=== PATIENT | male | born 1950 | race Caucasian/White ===

== ENCOUNTER 2018-08-26 14:16 | Emergency (ER) | payer MEDICARE, BC ==
[~2018-08-26] VITALS: Ht 185.4 cm; Wt 70.0 kg
[2018-08-26 15:28] LABS: ALANINE AMINOTRANSFERASE 22 U/L (12-78); ALBUMIN 3.6 g/dL (3.4-5.0); ANION GAP 6 mmol/L (5-15); CALCIUM 8.5 mg/dL (8.5-10.1); CHLORIDE 101 mmol/L (98-107); CREATININE 0.88 mg/dL (0.7-1.3)
[2018-08-26 15:30] LABS: ALKALINE PHOSPHATASE 94 U/L (45-117); TOTAL PROTEIN 6.6 g/dL (6.4-8.2)
[2018-08-26 16:09] LABS: MD YES; MEAN CORPUSCULAR HEMOGLOBIN 17.9 pg (27.5-34.5); MEAN CORPUSCULAR VOLUME 60.8 fL (81-97); PLATELET COUNT 248 x10^3/uL (130-400); RED CELL DISTRIBUTION WIDTH 19.9 % (9.4-14.8)
[2018-08-26 16:12] LABS: MEAN CORPUSCULAR HGB CONC 29.5 g/dL (33.2-36.2); RED BLOOD COUNT 10.32 x10^6/uL (4.38-5.82)
[2018-08-26 16:16] LABS: BASOS#(MANUAL) 0.28 x10^3/uL (0-0.1); BASOS% (MANUAL) 1 % (0-1); EOS#(MANUAL) 1.12 x10^3/uL (0.0-0.4); EOS% (MANUAL) 4 % (1-7)
[2018-08-26 16:18] LABS: LYMPHS% (MANUAL) 5 % (22-44); MONOS#(MANUAL) 0.56 x10^3/uL (0.3-2.7); MONOS% (MANUAL) 2 % (2-9)
--- NOTE | 2018-08-26 16:20 | NUR ---
Break RN: Pt assisted in using urinal, blanket provided. All results back, ready for ERP recheck.
[2018-08-26 16:27] LABS: BAND#(MANUAL) 0.56 x10^3/uL; BANDS%(MANUAL) 2 % (0-7); SEG#(MANUAL) 24.08 x10^3/uL (1.8-6.8); SEGS% (MANUAL) 86 % (42-75)
[2018-08-26 16:28] LABS: <PLATELET ESTIMATE> ADEQUATE; ANISOCYTOSIS 3+; HYPOCHROMIA 2+; MICROCYTOSIS 3+; OVALOCYTES 1+; POLYCHROMASIA 1+
[2018-08-26 16:29] LABS: LARGE PLATELETS 1+
[2018-08-26 16:35] LABS: SMUDGE CELLS 1+
[2018-08-26 16:53] LABS: MICROSCOPIC AUTO
[2018-08-26 16:56] LABS: CULTURE INDICATED? YES
[2018-08-26 17:12] VITALS: BP 103/68
--- NOTE | 2018-08-26 17:16 | NUR ---
REMAINS RESTING NADN WAITING RESULTS
--- NOTE | 2018-08-26 17:35 | NUR ---
[facility] UNABLE TO TRANSPORT [facility]IA [facility] ([facility]), [facility] TO TRANSPORT ~1830 (PER ELIZABETH). Addendum: 08/26/18 at 1758 by TIFFANIE [facility]ORT PT ([facility]), [facility] TO [facility]SPORT ~1830 (PER ELIZABETH).
== END 2018-08-26 18:44 | disposition home or self-care (01) ==
LOC: ED 14:56
DX: R07.81 Pleurodynia (principal); D72.829 Elevated white blood cell count, unspecified; Z86.73 Personal history of transient ischemic attack (TIA), and cerebral infarction without residual deficits
CPT/HCPCS: 36415; 71045; 76700; 80053; 81001; 85025; 87086; 93005; 99284

== ENCOUNTER 2018-09-30 18:40 | Inpatient (IN) | payer MEDICARE, BC ==
[~2018-09-30] VITALS: Ht 185.4 cm; Wt 67.3 kg
--- NOTE | 2018-09-30 19:00 | NUR ---
pt biba, report received from ems. per ems pt had cp x 2 hrs earlier today which has since resolved. pt now has c/o lower midline abd pain and notes no bm x 4 days. pt is a&o, resps even and unlabored. pt brought from assisted living ([facility]) in [place], pt has hx cva with left sided flaccidity. pt placed on all monitors, ekg taken on arrival by edt. call light in reach.
[2018-09-30 19:53] LABS: MEAN CORPUSCULAR VOLUME 61.4 fL (81-97); MEAN PLATELET VOLUME 8.1 fL (7.4-10.4); PLATELET COUNT 258 x10^3/uL (130-400)
--- NOTE | 2018-09-30 19:55 | NUR ---
pt to xray
[2018-09-30 20:02] LABS: ALANINE AMINOTRANSFERASE 24 U/L (12-78); ALBUMIN 3.4 g/dL (3.4-5.0); ANION GAP 6 mmol/L (5-15); CHLORIDE 101 mmol/L (98-107); CREATININE 0.83 mg/dL (0.7-1.3)
[2018-09-30 20:07] LABS: ALKALINE PHOSPHATASE 93 U/L (45-117); BILIRUBIN,TOTAL 0.9 mg/dL (0.2-1.0); TOTAL PROTEIN 6.6 g/dL (6.4-8.2); TROPONIN I < 0.015 ng/mL (0.000-0.045)
[2018-09-30 20:34] LABS: RED BLOOD COUNT 10.57 x10^6/uL (4.38-5.82)
[2018-09-30 20:35] LABS: MD YES; MEAN CORPUSCULAR HEMOGLOBIN 17.6 pg (27.5-34.5); MEAN CORPUSCULAR HGB CONC 28.6 g/dL (33.2-36.2)
[2018-09-30 20:37] LABS: BAND#(MANUAL) 0.93 x10^3/uL; BANDS%(MANUAL) 3 % (0-7); BASOS#(MANUAL) 0.31 x10^3/uL (0-0.1); BASOS% (MANUAL) 1 % (0-1); EOS#(MANUAL) 0.62 x10^3/uL (0.0-0.4); EOS% (MANUAL) 2 % (1-7); LYMPH#(MANUAL) 0.93 x10^3/uL (1-3.4); LYMPHS% (MANUAL) 3 % (22-44); MONOS#(MANUAL) 0.62 x10^3/uL (0.3-2.7); MONOS% (MANUAL) 2 % (2-9); SEGS% (MANUAL) 89 % (42-75)
[2018-09-30 20:38] LABS: HYPOCHROMIA 2+; MICROCYTOSIS 3+
[2018-09-30 20:39] LABS: ANISOCYTOSIS 2+
[2018-09-30 20:40] LABS: <PLATELET ESTIMATE> ADEQUATE; <PLT MORPHOLOGY> NORMAL PLT MORPH
--- NOTE | 2018-09-30 20:41 | NUR ---
lab at bedside for redraw
--- NOTE | 2018-09-30 20:46 | NUR ---
pt resting on gurney, pt a&o, resps even and unlabored. pt denies any pain at this time. no n/v. pt remains in nsr on property assessment monitor. pt given urinal at request to void. awaiting lab/xray results and dispo at this time. call light in reach. pt denies any other needs.
--- NOTE | 2018-09-30 20:54 | NUR ---
SAIRAME Cordell notified WBC count 30. no source of infection found at this time.
[2018-09-30 20:58] LABS: INTERNATIONAL NORMALIZED RATIO 1.47 (0.93-1.1); PROTHROMBIN TIME 15.4 Seconds (9.6-11.5)
--- NOTE | 2018-09-30 21:11 | NUR ---
pt still attempting to void via urinal without success. pt states "noise distracts me." pt educated regarding need for straight cath ua to evaluate source of infection. pt verbalizes understanding but refuses straight cath despite RN edcuation. LEO Landa and MD Wu notified.
--- NOTE | 2018-09-30 21:14 | NUR ---
[facility] notified pt's most recent bp 100/46.
[2018-09-30] MEDS ORDERED: SODIUM CHLORIDE 0.9% 1,000ML IVBOLUS ONE (21:30)
--- NOTE | 2018-09-30 21:45 | NUR ---
PT STILL UNABLE TO VOID WITH URINAL. PT EDUCATED PROFUSELY BY THIS RN REGARDING IMPORTANCE OF NEED TO OBTAIN URINE WITH STRAIGHT CATH. PT DEMONSTRATES UNDERSTANDING BUT CONTINUES TO REFUSE STRAIGHT CATH. LEO GRUBBS AND [facility] NOTIFIED PT CONTINUES TO REFUSE STRAIGHT CATH AND IS UNABLE TO PROVIDE URINE AT THIS TIME. PT IS A&O, RESPS EVEN AND UNLABORED. PER [facility]SU[facility], PT DOES NOT HAVE PNA ON IMAGING TAKEN TODAY. OK'D PT TO BE TRANSPORTED TO [facility] WITHOUT URINE SAMPLE.
--- NOTE | 2018-09-30 21:50 | NUR ---
REPORT GIVEN TO FINESSE BRIAN.
--- NOTE | 2018-09-30 21:56 | NUR ---
FRANCK BANKS AT BEDSIDE TO ADMIT PT
[2018-09-30] MEDS ORDERED: atorvastatin PO (22:17)
[2018-09-30] MEDS ORDERED: RISP0.5T3 PO (22:17)
[2018-09-30] MEDS ORDERED: POLY500P18 PO (22:17)
[2018-09-30] MEDS ORDERED: ROPI1TAB2 PO (22:17)
[2018-09-30] MEDS ORDERED: PETR99OI2 TP (22:17)
[2018-09-30] MEDS ORDERED: lisinopril PO (22:17)
[2018-09-30] MEDS ORDERED: CLOP75TA PO (22:17)
[2018-09-30] MEDS ORDERED: HYDR28.423 TP (22:17)
[2018-09-30] MEDS ORDERED: LEVE10007 PO (22:17)
[2018-09-30] MEDS ORDERED: ONDA4TAB13 SL (22:17)
[2018-09-30] MEDS ORDERED: calmoseptine oint TP (22:17)
[2018-09-30] MEDS ORDERED: TRAM50TA2 PO (22:17)
[2018-09-30] MEDS ORDERED: phenytoin PO (22:17)
[2018-09-30] MEDS ORDERED: ACET325T14 PO (22:17)
[2018-09-30] MEDS ORDERED: CARV3.1212 PO (22:17)
[2018-09-30] MEDS ORDERED: DULO20CA45 PO (22:17)
[2018-09-30] MEDS ORDERED: SODIUM CHLORIDE 0.9% 1,000 ML IV SCH (22:26)
--- NOTE | 2018-09-30 22:29 | NUR ---
late entry for 2228 d/t patient care: pt was able to provide urine via urinal. verbal order received from EDMD Bryce to send urine clean catch for ua. urine sent to lab. 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 pt a&o, resps even and unlabored. FRANCK Santiago notified pt is meeting criteria for sepsis but does not have a source yet, however urine is pending. vs and trend reveiwed with FRANCK Santiago. FRANCK paez'd pt to be transported to [facility] at this time. receiving RN Blanca called to update, receiving RN aware to await UA results and call hospitalist with results. pt in no acute distress at time of transport.
[2018-09-30] MEDS ORDERED: LIDODERM 5% PATCH TD PRN (22:30)
[2018-09-30] MEDS ORDERED: ONDANSETRON ODT 4 MG PO PRN (22:30)
[2018-09-30] MEDS ORDERED: DOCUSATE 100 MG CAPSULE PO PRN (22:30)
[2018-09-30] MEDS ORDERED: ENALAPRILAT 1.25 MG/ML, 2ML IVPush PRN (22:30)
[2018-09-30] MEDS ORDERED: GABAPENTIN 300 MG CAPSULE PO PRN (22:30)
[2018-09-30] MEDS: ENOXAPARIN 40 MG/0.4 ML SQ SCH (22:30)
[2018-09-30] MEDS ORDERED: ACETAMINOPHEN 325 MG TABLET PO PRN (22:30)
[2018-09-30 22:46] LABS: CULTURE INDICATED? YES; MICROSCOPIC INDICATED
[2018-09-30 23:55] VITALS: BP 97/59
[2018-10-01] MEDS: RISPERIDONE 0.5 MG TABLET PO SCH ×2 (00:30→20:45)
[2018-10-01] MEDS ORDERED: POLYETHYLENE GLYCOL 17 GM PACKET PO PRN (00:30)
[2018-10-01] MEDS ORDERED: ONDANSETRON ODT 4 MG SL PRN (00:30)
[2018-10-01] MEDS: ROPINIROLE 1MG TABLET PO SCH ×2 (00:30→20:45)
[2018-10-01] MEDS ORDERED: HYDROCORTISONE CRM 1%, 30GM TP PRN (00:30)
[2018-10-01] MEDS: ATORVASTATIN 40 MG TABLET PO SCH ×2 (00:30→20:44)
[2018-10-01] MEDS: CALMOSEPTINE TP SCH ×6 (00:30→20:44)
[2018-10-01] MEDS ORDERED: AQUAPHOR NATURAL HEALING OINT 50GM TP PRN (00:30)
[2018-10-01] MEDS ORDERED: ACETAMINOPHEN 325 MG TABLET PO PRN ×2 (00:30→08:00)
[2018-10-01] MEDS: PHENYTOIN 100 MG CAPSULE PO SCH ×4 (00:30→20:45)
[2018-10-01 01:54] VITALS: BP 102/60
[2018-10-01 06:43] VITALS: BP 99/57
[2018-10-01 06:50] LABS: MEAN CORPUSCULAR HEMOGLOBIN 17.8 pg (27.5-34.5); MEAN CORPUSCULAR VOLUME 60.7 fL (81-97); MEAN PLATELET VOLUME 7.9 fL (7.4-10.4); PLATELET COUNT 241 x10^3/uL (130-400); RED CELL DISTRIBUTION WIDTH 20.9 % (9.4-14.8)
[2018-10-01 06:56] LABS: ANION GAP 5 mmol/L (5-15); CALCIUM 7.5 mg/dL (8.5-10.1); CHLORIDE 107 mmol/L (98-107); CREATININE 0.59 mg/dL (0.7-1.3)
[2018-10-01 06:59] LABS: TROPONIN I < 0.015 ng/mL (0.000-0.045)
[2018-10-01 07:19] LABS: MD YES; MEAN CORPUSCULAR HGB CONC 29.3 g/dL (33.2-36.2); RED BLOOD COUNT 10.11 x10^6/uL (4.38-5.82)
[2018-10-01 07:25] LABS: EOS% (MANUAL) 4 % (1-7); LYMPHS% (MANUAL) 4 % (22-44); SEGS% (MANUAL) 92 % (42-75)
[2018-10-01 07:26] LABS: ANISOCYTOSIS 2+; HYPOCHROMIA 2+; MICROCYTOSIS 3+
[2018-10-01 07:27] LABS: <PLATELET ESTIMATE> ADEQUATE; <PLT MORPHOLOGY> NORMAL PLT MORPH
[2018-10-01] MEDS: DULOXETINE 20 MG CAPSULE.DR PO SCH (09:00)
[2018-10-01] MEDS ORDERED: CARVEDILOL 3.125 MG TABLET PO SCH (09:00)
[2018-10-01] MEDS: CARVEDILOL 3.125 MG TABLET PO SCH ×2 (09:00→20:45)
[2018-10-01] MEDS ORDERED: LISINOPRIL 5 MG TABLET PO SCH (09:00)
[2018-10-01] MEDS: CLOPIDOGREL 75 MG TABLET PO SCH (09:00)
[2018-10-01] MEDS: LEVETIRACETAM 500 MG TABLET PO SCH ×2 (09:01→20:44)
[2018-10-01 09:05] LABS: CHOL/HDL RATIO 2.1; LDL/HDL RATIO 0.5 (0.5-3.0)
[2018-10-01] MEDS ORDERED: REGADENOSON 0.4 MG/5 ML SYRINGE ONE (11:33)
[2018-10-01] MEDS ORDERED: BISACODYL 10 MG SUPP PR ONE (13:00)
[2018-10-01] MEDS ORDERED: MAGNESIUM CITRATE 300ML ORAL SOL PO ONE (13:00)
[2018-10-01 14:16] VITALS: BP 107/56
[2018-10-01 19:14] VITALS: BP 110/62
[2018-10-01] MEDS: ENOXAPARIN 40 MG/0.4 ML SQ SCH (21:54)
[2018-10-01] MEDS ORDERED: SODIUM CHLORIDE 0.9% 1,000 ML IV SCH ×2 (22:26)
[2018-10-02] MEDS: CALMOSEPTINE TP SCH ×3 (00:47→08:14)
[2018-10-02 01:30] VITALS: BP 95/58
[2018-10-02 06:52] VITALS: BP 103/57
[2018-10-02] MEDS: PHENYTOIN 100 MG CAPSULE PO SCH (08:10)
[2018-10-02] MEDS: DULOXETINE 20 MG CAPSULE.DR PO SCH (08:10)
[2018-10-02] MEDS: CLOPIDOGREL 75 MG TABLET PO SCH (08:10)
[2018-10-02] MEDS: LEVETIRACETAM 500 MG TABLET PO SCH (08:11)
[2018-10-02] MEDS: CARVEDILOL 3.125 MG TABLET PO SCH (08:11)
== END 2018-10-02 10:55 | DRG 206 ==
LOC: ED 21:16 → EDIP 21:34 → 4WST 22:34
PROVIDERS: ADMIT Hospitalist; ATTEND Hospitalist
DX: M94.0 Chondrocostal junction syndrome [Tietze] (principal); D68.9 Coagulation defect, unspecified; F33.9 Major depressive disorder, recurrent, unspecified; I69.351 Hemiplegia and hemiparesis following cerebral infarction affecting right dominant side; K59.00 Constipation, unspecified; R07.89 Other chest pain; D72.829 Elevated white blood cell count, unspecified; E78.5 Hyperlipidemia, unspecified; F79 Unspecified intellectual disabilities; G40.909 Epilepsy, unspecified, not intractable, without status epilepticus; G47.00 Insomnia, unspecified; I11.9 Hypertensive heart disease without heart failure; Z82.49 Family history of ischemic heart disease and other diseases of the circulatory system; Z87.891 Personal history of nicotine dependence; Z83.3 Family history of diabetes mellitus; Z90.49 Acquired absence of other specified parts of digestive tract; Z88.0 Allergy status to penicillin
CPT/HCPCS: 36415; 74022; 78452; 80048; 80053; 80061; 81001; 84484; 85025; 85610; 87086; 93005; 93017; 93306; 96360; 99285; G0378; J1650; J2785; A9502; C9898; J7030

== ENCOUNTER 2018-10-25 11:01 | Emergency (ER) | payer MEDICARE, BC ==
[~2018-10-25 11:01] MED LIST: ACET325T14 PO; CARV3.1212 PO; CLOP75TA PO; DULO20CA45 PO; HYDR28.423 TP; LEVE10007 PO; ONDA4TAB13 SL; PETR99OI2 TP; POLY500P18 PO; RISP0.5T3 PO; ROPI1TAB2 PO; TRAM50TA2 PO; atorvastatin PO; calmoseptine oint TP; lisinopril PO; phenytoin PO
--- NOTE | 2018-10-25 11:20 | NUR ---
PT to CT via [facility].
[2018-10-25] MEDS ORDERED: SODIUM CHLORIDE FLUSH 10ML SYR IVF ONE (11:30)
[2018-10-25] MEDS ORDERED: ONDANSETRON 2MG/ML, 2ML IVPush ONE (11:30)
--- NOTE | 2018-10-25 11:38 | NUR ---
Pt back from CT.
--- NOTE | 2018-10-25 11:40 | NUR ---
PT STATES N/V WITH ABD PAIN LAST NIGHT. THOSE SYMPTOMS HAVE RESLOVED AT THIS TIME. PT DOES STATE GENERALIZED FATIGUE AT THIS TIME. ALSO STATES, HE JUST FEELS LOUSY. PT WITH HX OF CVA X 2 WITH LEFT SIDED DEFICTS. PT DENIES RECENT CHANGES TO DEFICETS. BREATHING REGULAR AND UNLABORED. MILD AMOUNT OF DISTRESS NOTED. PT ON CONT. PULSE OX AND BP. WILL CONTINUE TO MONITOR.
--- NOTE | 2018-10-25 12:00 | NUR ---
REPORT TO FINESSE DANGELO.
[2018-10-25 12:47] VITALS: BP 110/57
--- NOTE | 2018-10-25 12:47 | NUR ---
fluids given pt resting on and off, awaiting lab to redraw
[2018-10-25 13:27] LABS: ALANINE AMINOTRANSFERASE 20 U/L (12-78); ALBUMIN 3.3 g/dL (3.4-5.0); ANION GAP 5 mmol/L (5-15); CALCIUM 8.1 mg/dL (8.5-10.1); CHLORIDE 105 mmol/L (98-107)
[2018-10-25 13:29] LABS: ALKALINE PHOSPHATASE 101 U/L (45-117); BILIRUBIN,TOTAL 1.1 mg/dL (0.2-1.0); CREATININE 0.77 mg/dL (0.7-1.3); TOTAL PROTEIN 6.1 g/dL (6.4-8.2); TROPONIN I < 0.015 ng/mL (0.000-0.045)
[2018-10-25 13:36] LABS: PROTHROMBIN TIME 13.4 Seconds (9.6-11.5)
[2018-10-25 13:37] LABS: INTERNATIONAL NORMALIZED RATIO 1.29 (0.93-1.1)
--- NOTE | 2018-10-25 14:00 | NUR ---
PT UP TO COMMODE X 1 UNABLE TO PRODUCE UA OR BM
[2018-10-25 14:02] LABS: MEAN CORPUSCULAR HEMOGLOBIN 17.3 pg (27.5-34.5); MEAN CORPUSCULAR HGB CONC 28.6 g/dL (33.2-36.2); MEAN CORPUSCULAR VOLUME 60.5 fL (81-97)
[2018-10-25 14:03] LABS: MEAN PLATELET VOLUME 8.1 fL (7.4-10.4); PLATELET COUNT 259 x10^3/uL (130-400); RED CELL DISTRIBUTION WIDTH 21.4 % (9.4-14.8)
[2018-10-25 14:04] LABS: HEMOGRAM NOTE RECHECKED; RED BLOOD COUNT 11.18 x10^6/uL (4.38-5.82)
[2018-10-25 14:53] LABS: MD YES
[2018-10-25 15:01] LABS: BAND#(MANUAL) 2.95 x10^3/uL; BANDS%(MANUAL) 8 % (0-7); LYMPH#(MANUAL) 1.11 x10^3/uL (1-3.4); LYMPHS% (MANUAL) 3 % (22-44); SEGS% (MANUAL) 89 % (42-75)
[2018-10-25 15:02] LABS: ANISOCYTOSIS 2+; HYPOCHROMIA 2+; MICROCYTOSIS 3+
[2018-10-25 15:03] LABS: <PLATELET ESTIMATE> ADEQUATE; <PLT MORPHOLOGY> NORMAL PLT MORPH
--- NOTE | 2018-10-25 15:30 | NUR ---
PT READY FOR D/C WILL ARRANGE TRANSPORT
--- NOTE | 2018-10-25 16:03 | NUR ---
KATHLEEN RN: [facility]SPORT ARRANGED FOR [facility]. ETA 1705
== END 2018-10-25 17:31 | disposition home or self-care (01) ==
LOC: ED 13:00
DX: R53.1 Weakness (principal); M79.10 Myalgia, unspecified site; R53.83 Other fatigue; R05 Cough; Z87.891 Personal history of nicotine dependence; Z86.73 Personal history of transient ischemic attack (TIA), and cerebral infarction without residual deficits
CPT/HCPCS: 36415; 70450; 71045; 80053; 82140; 83605; 84484; 85025; 85610; 85730; 87040; 93005; 99284

== ENCOUNTER 2018-11-09 12:08 | Inpatient (IN) | payer MEDICARE, BC ==
[~2018-11-09] VITALS: Ht 185.4 cm; Wt 72.6 kg
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
--- NOTE | 2018-11-09 12:51 | NUR ---
Patient in xray.
[2018-11-09 12:55] LABS: ALBUMIN 2.9 g/dL (3.4-5.0); ANION GAP 5 mmol/L (5-15); CALCIUM 7.9 mg/dL (8.5-10.1); CHLORIDE 103 mmol/L (98-107)
[2018-11-09 12:59] LABS: CREATININE 0.66 mg/dL (0.7-1.3); TROPONIN I < 0.015 ng/mL (0.000-0.045)
--- NOTE | 2018-11-09 13:09 | NUR ---
Refusing cath. Provided with urinal. Encouraged patient to provide UA.
[2018-11-09 13:12] LABS: MEAN CORPUSCULAR HEMOGLOBIN 17.5 pg (27.5-34.5); MEAN CORPUSCULAR VOLUME 60.5 fL (81-97); MEAN PLATELET VOLUME 8.5 fL (7.4-10.4); PLATELET COUNT 200 x10^3/uL (130-400); RED CELL DISTRIBUTION WIDTH 21.9 % (9.4-14.8)
[2018-11-09 13:13] LABS: MEAN CORPUSCULAR HGB CONC 28.9 g/dL (33.2-36.2)
[2018-11-09 13:25] LABS: MD YES
[2018-11-09 13:27] LABS: BAND#(MANUAL) 1.58 x10^3/uL; BANDS%(MANUAL) 6 % (0-7); EOS#(MANUAL) 0.26 x10^3/uL (0.0-0.4); EOS% (MANUAL) 1 % (1-7); LYMPH#(MANUAL) 1.05 x10^3/uL (1-3.4); LYMPHS% (MANUAL) 4 % (22-44); MONOS% (MANUAL) 8 % (2-9); SEGS% (MANUAL) 81 % (42-75)
[2018-11-09 13:28] LABS: ANISOCYTOSIS 2+; MICROCYTOSIS 2+
[2018-11-09 13:29] LABS: <PLATELET ESTIMATE> ADEQUATE; <PLT MORPHOLOGY> NORMAL PLT MORPH; ACANTHOCYTES 1+
[2018-11-09] MEDS ORDERED: MENT3.5O TP (13:53)
[2018-11-09] MEDS ORDERED: DOXY100T PO (13:53)
--- NOTE | 2018-11-09 14:15 | NUR ---
VSS. No needs.
[2018-11-09] MEDS ORDERED: CEFTRIAXONE PMX 1GM/50ML 50 ML IV ONE (14:30)
[2018-11-09] MEDS ORDERED: VANCOMYCIN PER PHARMACY MC PRN ×2 (14:30→15:30)
[2018-11-09] MEDS ORDERED: VANCOMYCIN 1,400 MG in SODIUM CHLORIDE 0.9% 250 ML IV ONE (14:30)
[2018-11-09] MEDS ORDERED: CEFTRIAXONE PMX 1GM/50ML 50 ML ONE (14:44)
--- NOTE | 2018-11-09 14:50 | NUR ---
Report to FINSESE Rojo.
[2018-11-09] MEDS ORDERED: SODIUM CHLORIDE 0.9% 1,000ML IVBOLUS ONE (15:00)
[2018-11-09] MEDS ORDERED: ACETAMINOPHEN 325 MG TABLET PO PRN (15:30)
[2018-11-09] MEDS ORDERED: ONDANSETRON ODT 4 MG PO PRN (15:30)
[2018-11-09] MEDS ORDERED: VANCOMYCIN PMX 1GM/200ML 200 ML IV SCH (15:30)
[2018-11-09] MEDS ORDERED: BISACODYL 10 MG SUPP PR PRN (15:30)
[2018-11-09] MEDS ORDERED: DOCUSATE 100 MG CAPSULE PO PRN (15:30)
[2018-11-09] MEDS ORDERED: GUAIFENESIN/DM 200-20MG, 10ML UDC PO PRN (15:30)
[2018-11-09] MEDS ORDERED: POLYETHYLENE GLYCOL 17 GM PACKET PO PRN (15:30)
[2018-11-09 16:00] VITALS: BP 95/50
[2018-11-09] MEDS ORDERED: PHARMACOKINETIC MONITORING MC PRN (16:30)
[2018-11-09] MEDS ORDERED: PHARMACOKINETIC CONSULTATION MC ONE (16:30)
[2018-11-09 18:13] LABS: CULTURE INDICATED? YES; MICROSCOPIC AUTO
[2018-11-09 18:26] VITALS: BP 113/65
[2018-11-09] MEDS: SODIUM CHLORIDE 0.9% 1,000 ML IV SCH (18:36)
[2018-11-09] MEDS: CLINDAMYCIN PMX 300MG/50ML 50 ML IV SCH (20:19)
[2018-11-09 20:41] VITALS: BP 120/70
[2018-11-10] MEDS: CLINDAMYCIN PMX 300MG/50ML 50 ML IV SCH ×4 (00:48→23:46)
[2018-11-10 00:50] VITALS: BP 103/60
[2018-11-10 06:43] LABS: ANION GAP 9 mmol/L (5-15); CALCIUM 7.6 mg/dL (8.5-10.1); CHLORIDE 106 mmol/L (98-107); CREATININE 0.53 mg/dL (0.7-1.3)
[2018-11-10] MEDS ORDERED: ACETAMINOPHEN 325 MG TABLET PO PRN (07:30)
[2018-11-10] MEDS ORDERED: ONDANSETRON ODT 4 MG PO PRN (07:30)
[2018-11-10 07:33] VITALS: BP 109/64
[2018-11-10 07:40] LABS: MEAN CORPUSCULAR HEMOGLOBIN 17.4 pg (27.5-34.5); PLATELET COUNT 163 x10^3/uL (130-400); RED BLOOD COUNT 9.73 x10^6/uL (4.38-5.82); RED CELL DISTRIBUTION WIDTH 21.8 % (9.4-14.8)
[2018-11-10 07:41] LABS: MEAN PLATELET VOLUME 8.8 fL (7.4-10.4)
[2018-11-10] MEDS ORDERED: DOXYCYCLINE 100MG CAP PO SCH (09:00)
[2018-11-10] MEDS: DULOXETINE 20 MG CAPSULE.DR PO SCH (09:00)
[2018-11-10] MEDS: PHENYTOIN 100 MG CAPSULE PO SCH ×3 (09:00→20:52)
[2018-11-10] MEDS: LEVETIRACETAM 500 MG TABLET PO SCH ×2 (09:00→20:51)
[2018-11-10] MEDS: LISINOPRIL 5 MG TABLET PO SCH (09:00)
[2018-11-10] MEDS: SODIUM CHLORIDE 0.9% 1,000 ML IV SCH (10:00)
[2018-11-10 10:41] LABS: MD YES
[2018-11-10 10:43] LABS: BAND#(MANUAL) 0.25 x10^3/uL; BANDS%(MANUAL) 1 % (0-7); EOS#(MANUAL) 0.49 x10^3/uL (0.0-0.4); EOS% (MANUAL) 2 % (1-7); LYMPH#(MANUAL) 2.72 x10^3/uL (1-3.4); LYMPHS% (MANUAL) 11 % (22-44); MONOS#(MANUAL) 0.74 x10^3/uL (0.3-2.7); MONOS% (MANUAL) 3 % (2-9); SEGS% (MANUAL) 83 % (42-75)
[2018-11-10 10:45] LABS: ANISOCYTOSIS 2+; MICROCYTOSIS 2+
[2018-11-10 10:46] LABS: SPHEROCYTES 1+
[2018-11-10 10:47] LABS: <PLATELET ESTIMATE> ADEQUATE; <PLT MORPHOLOGY> NORMAL PLT MORPH; HYPOCHROMIA 1+; POLYCHROMASIA 1+
[2018-11-10] MEDS: VANCOMYCIN 1,300 MG in SODIUM CHLORIDE 0.9% 250 ML IV SCH (12:21)
--- NOTE | 2018-11-10 13:09 | NUR ---
REC: Chopped diet with thin liquids due to left hemiplegia; aspiration precautions; assist with meals Addendum: 11/10/18 at 1310 by Krystal BLAS Amended: Links added.
[2018-11-10 13:49] VITALS: BP 112/67
[2018-11-10] MEDS ORDERED: VANCOMYCIN 1,300 MG in SODIUM CHLORIDE 0.9% 250 ML IV SCH (16:00)
[2018-11-10] MEDS ORDERED: SODIUM CHLORIDE INHALATION 7%, 4 ML NPPB ONE (16:30)
[2018-11-10] MEDS: CARVEDILOL 3.125 MG TABLET PO SCH (17:54)
[2018-11-10 19:33] VITALS: BP 128/67
[2018-11-10] MEDS: RISPERIDONE 0.5 MG TABLET PO SCH (20:52)
[2018-11-10] MEDS: ATORVASTATIN 40 MG TABLET PO SCH (20:52)
[2018-11-10] MEDS: ROPINIROLE 0.5MG TABLET PO SCH (20:52)
[2018-11-11 00:25] VITALS: BP 114/65
[2018-11-11 05:34] VITALS: BP 120/67
[2018-11-11] MEDS: VANCOMYCIN 1,300 MG in SODIUM CHLORIDE 0.9% 250 ML IV SCH (05:38)
[2018-11-11] MEDS: CARVEDILOL 3.125 MG TABLET PO SCH ×2 (05:38→18:00)
[2018-11-11 08:23] VITALS: BP 118/68
[2018-11-11] MEDS: LISINOPRIL 5 MG TABLET PO SCH (08:42)
[2018-11-11] MEDS: DULOXETINE 20 MG CAPSULE.DR PO SCH (08:42)
[2018-11-11] MEDS: LEVETIRACETAM 500 MG TABLET PO SCH ×2 (08:42→22:19)
[2018-11-11] MEDS: CLINDAMYCIN PMX 300MG/50ML 50 ML IV SCH ×3 (08:42→22:59)
[2018-11-11] MEDS: PHENYTOIN 100 MG CAPSULE PO SCH ×3 (08:42→22:20)
[2018-11-11 12:03] LABS: MEAN CORPUSCULAR VOLUME 60.5 fL (81-97); MEAN PLATELET VOLUME 8.3 fL (7.4-10.4); PLATELET COUNT 187 x10^3/uL (130-400); RED CELL DISTRIBUTION WIDTH 22.3 % (9.4-14.8)
[2018-11-11 12:07] LABS: MEAN CORPUSCULAR HGB CONC 29.8 g/dL (33.2-36.2); RED BLOOD COUNT 9.96 x10^6/uL (4.38-5.82)
[2018-11-11 12:08] LABS: MD YES
[2018-11-11 12:09] LABS: ANISOCYTOSIS 2+; BAND#(MANUAL) 0.26 x10^3/uL; BANDS%(MANUAL) 1 % (0-7); EOS#(MANUAL) 0.77 x10^3/uL (0.0-0.4); EOS% (MANUAL) 3 % (1-7); HYPOCHROMIA 1+; LYMPH#(MANUAL) 1.55 x10^3/uL (1-3.4); LYMPHS% (MANUAL) 6 % (22-44); MICROCYTOSIS 2+; MONOS#(MANUAL) 0.26 x10^3/uL (0.3-2.7); MONOS% (MANUAL) 1 % (2-9); POLYCHROMASIA 1+; SEG#(MANUAL) 22.96 x10^3/uL (1.8-6.8); SEGS% (MANUAL) 89 % (42-75)
[2018-11-11 12:11] LABS: <PLATELET ESTIMATE> ADEQUATE; <PLT MORPHOLOGY> NORMAL PLT MORPH
[2018-11-11 14:53] VITALS: BP 135/67
[2018-11-11 19:03] VITALS: BP 110/63
[2018-11-11] MEDS: ROPINIROLE 0.5MG TABLET PO SCH (22:20)
[2018-11-11] MEDS: ATORVASTATIN 40 MG TABLET PO SCH (22:20)
[2018-11-11] MEDS: RISPERIDONE 0.5 MG TABLET PO SCH (22:20)
[2018-11-12] MEDS: VANCOMYCIN 1,300 MG in SODIUM CHLORIDE 0.9% 250 ML IV SCH (00:14)
[2018-11-12 01:08] VITALS: BP 100/55
[2018-11-12 05:18] VITALS: BP 103/54
[2018-11-12] MEDS: CARVEDILOL 3.125 MG TABLET PO SCH ×2 (05:44→18:40)
[2018-11-12 07:10] VITALS: BP 98/60
[2018-11-12] MEDS: CLINDAMYCIN PMX 300MG/50ML 50 ML IV SCH (07:26)
[2018-11-12] MEDS: LISINOPRIL 5 MG TABLET PO SCH (09:00)
[2018-11-12] MEDS: LEVETIRACETAM 500 MG TABLET PO SCH ×2 (10:08→20:09)
[2018-11-12] MEDS: DULOXETINE 20 MG CAPSULE.DR PO SCH (10:09)
[2018-11-12] MEDS: PHENYTOIN 100 MG CAPSULE PO SCH ×3 (10:09→20:09)
[2018-11-12] MEDS ORDERED: VANCOMYCIN 1,300 MG in SODIUM CHLORIDE 0.9% 250 ML IV SCH (11:00)
[2018-11-12] MEDS ORDERED: CLIN300C3 PO (12:36)
[2018-11-12] MEDS ORDERED: LACT1CAP11 PO (12:39)
[2018-11-12] MEDS: LACTOBACILLUS 1GM/ PACKET PO SCH ×3 (13:00→20:09)
[2018-11-12 16:00] VITALS: BP 105/62
[2018-11-12] MEDS: CLINDAMYCIN 300 MG CAPSULE PO SCH ×2 (16:21→20:10)
[2018-11-12 19:40] VITALS: BP 112/57
[2018-11-12] MEDS: ROPINIROLE 0.5MG TABLET PO SCH (20:09)
[2018-11-12] MEDS: ATORVASTATIN 40 MG TABLET PO SCH (20:09)
[2018-11-12] MEDS: RISPERIDONE 0.5 MG TABLET PO SCH (20:10)
[2018-11-12] MEDS: IBUPROFEN 600 MG TABLET PO PRN (22:42)
[2018-11-13 00:37] VITALS: BP 112/67
[2018-11-13] MEDS: LIDODERM 5% PATCH TD PRN ×2 (00:47→23:22)
[2018-11-13 06:08] VITALS: BP 110/65
[2018-11-13] MEDS: CARVEDILOL 3.125 MG TABLET PO SCH ×2 (06:09→16:29)
[2018-11-13 07:48] VITALS: BP 112/70
[2018-11-13] MEDS: DULOXETINE 20 MG CAPSULE.DR PO SCH (09:25)
[2018-11-13] MEDS: LACTOBACILLUS 1GM/ PACKET PO SCH ×3 (09:25→21:11)
[2018-11-13] MEDS: LEVETIRACETAM 500 MG TABLET PO SCH ×2 (09:25→21:11)
[2018-11-13] MEDS: LISINOPRIL 5 MG TABLET PO SCH (09:25)
[2018-11-13] MEDS: CLINDAMYCIN 300 MG CAPSULE PO SCH ×3 (09:25→21:11)
[2018-11-13] MEDS: PHENYTOIN 100 MG CAPSULE PO SCH ×3 (09:26→21:10)
[2018-11-13 13:15] VITALS: BP 123/64
[2018-11-13 20:30] VITALS: BP 104/57
[2018-11-13] MEDS: ATORVASTATIN 40 MG TABLET PO SCH (21:10)
[2018-11-13] MEDS: ROPINIROLE 0.5MG TABLET PO SCH (21:11)
[2018-11-13] MEDS: RISPERIDONE 0.5 MG TABLET PO SCH (21:11)
[2018-11-13] MEDS: IBUPROFEN 600 MG TABLET PO PRN (21:11)
[2018-11-14 01:48] VITALS: BP 98/52
[2018-11-14 05:32] VITALS: BP 109/63
[2018-11-14] MEDS: CARVEDILOL 3.125 MG TABLET PO SCH ×2 (05:32→16:15)
[2018-11-14 06:37] VITALS: BP 112/58
[2018-11-14] MEDS: PHENYTOIN 100 MG CAPSULE PO SCH ×2 (08:38→16:14)
[2018-11-14] MEDS: CLINDAMYCIN 300 MG CAPSULE PO SCH ×3 (08:38→19:06)
[2018-11-14] MEDS: LACTOBACILLUS 1GM/ PACKET PO SCH ×3 (08:38→19:06)
[2018-11-14] MEDS: LISINOPRIL 5 MG TABLET PO SCH (08:39)
[2018-11-14] MEDS: DULOXETINE 20 MG CAPSULE.DR PO SCH (08:39)
[2018-11-14] MEDS: LEVETIRACETAM 500 MG TABLET PO SCH (08:39)
[2018-11-14 14:12] VITALS: BP 112/62
[2018-11-14] MEDS: IBUPROFEN 600 MG TABLET PO PRN (14:36)
== END 2018-11-14 20:40 | disposition home health service (06) | DRG 177 ==
LOC: ED 12:56 → EDIP 14:28 → 3NE 15:15 → 4EST 18:25
PROVIDERS: ADMIT Internal Medicine; ATTEND Internal Medicine
PROC: 0T9B70Z Drainage of Bladder with Drainage Device, Via Natural or Artificial Opening (ICD-10-PCS; principal; 2018-11-09)
DX: J69.0 Pneumonitis due to inhalation of food and vomit (principal); J96.21 Acute and chronic respiratory failure with hypoxia; E43 Unspecified severe protein-calorie malnutrition; S42.215A Unspecified nondisplaced fracture of surgical neck of left humerus, initial encounter for closed fracture; F33.9 Major depressive disorder, recurrent, unspecified; I69.354 Hemiplegia and hemiparesis following cerebral infarction affecting left non-dominant side; W18.39XA Other fall on same level, initial encounter; E78.5 Hyperlipidemia, unspecified; E86.0 Dehydration; G40.909 Epilepsy, unspecified, not intractable, without status epilepticus; G89.11 Acute pain due to trauma; I11.9 Hypertensive heart disease without heart failure; Y93.89 Activity, other specified; Y92.89 Other specified places as the place of occurrence of the external cause; Y99.8 Other external cause status; Z87.891 Personal history of nicotine dependence; Z99.3 Dependence on wheelchair; Z68.21 Body mass index [BMI] 21.0-21.9, adult; Z88.0 Allergy status to penicillin; Z88.8 Allergy status to other drugs, medicaments and biological substances; Z90.49 Acquired absence of other specified parts of digestive tract
CPT/HCPCS: 36415; 71045; 72190; 80048; 80202; 81001; 82040; 82962; 83605; 84145; 84484; 85025; 87040; 87070; 87081; 87086; 87205; 93005; 94640; 99285; G0378; J0696; J3370; J7030; J7050

== ENCOUNTER 2018-12-10 03:54 | Emergency (ER) | payer MEDICARE, BC ==
[~2018-12-10] VITALS: Ht 185.4 cm; Wt 56.8 kg
[~2018-12-10 03:54] MED LIST changes: +CLIN300C3 PO; +DOXY100T PO; +LACT1CAP11 PO; +MENT3.5O TP
--- NOTE | 2018-12-10 04:02 | NUR ---
[facility]MITTENT L HIP AND LEG PAINx MULTIPLE YEARS. STATES NOT IN PAIN AT THIS TIME AND NO PAIN MED MANAGEMENT PERFORMED BY FIRE. PT DID NOT INITIATE 911 CALL AND IS UNSURE [facility] CALLED 911. PT HYPOTENSIVE FOR FIRE AND REMAINS MILDLY HYPOTENSIVE IN ED. GIVEN 750 ML NS VIA FIRE AND NO CHANGES IN BP. ALL MONITORING APPLIED. VS OTHERWISE STABLE.
[2018-12-10] MEDS ORDERED: GABAPENTIN 300 MG CAPSULE PO ONE (05:00)
[2018-12-10 05:01] LABS: MICROSCOPIC NOT IND
[2018-12-10 05:05] LABS: CULTURE INDICATED? NO
--- NOTE | 2018-12-10 05:09 | NUR ---
PT IN IMAGING.
[2018-12-10 05:29] LABS: ALBUMIN 3.1 g/dL (3.4-5.0); ANION GAP 5 mmol/L (5-15); CHLORIDE 101 mmol/L (98-107); CREATININE 0.66 mg/dL (0.7-1.3)
[2018-12-10] MEDS ORDERED: GABAPENTIN 300 MG CAPSULE ONE (05:33)
[2018-12-10 05:38] LABS: MEAN CORPUSCULAR HEMOGLOBIN 18.2 pg (27.5-34.5); MEAN CORPUSCULAR VOLUME 61.4 fL (81-97); RED CELL DISTRIBUTION WIDTH 22.1 % (9.4-14.8)
--- NOTE | 2018-12-10 05:38 | NUR ---
MEDICATED PER MAR. NO OTHER IMMEDIATE NEEDS. AWAITING RESULTS.
--- NOTE | 2018-12-10 05:39 | NUR ---
PT STATES ULCER ON BUTTOCKS. ULCE NOTED ON L SIDE OF BUTTOCKS. STATES BEING TRE[facility].
[2018-12-10 05:59] LABS: MEAN PLATELET VOLUME 7.7 fL (7.4-10.4); PLATELET COUNT 159 x10^3/uL (130-400)
[2018-12-10 06:01] LABS: MEAN CORPUSCULAR HGB CONC 29.7 g/dL (33.2-36.2); RED BLOOD COUNT 10.21 x10^6/uL (4.38-5.82)
[2018-12-10 06:02] LABS: MD YES
[2018-12-10 06:04] LABS: BAND#(MANUAL) 1.24 x10^3/uL; BANDS%(MANUAL) 6 % (0-7); EOS#(MANUAL) 1.24 x10^3/uL (0.0-0.4); EOS% (MANUAL) 6 % (1-7); LYMPH#(MANUAL) 1.24 x10^3/uL (1-3.4); LYMPHS% (MANUAL) 6 % (22-44); MONOS#(MANUAL) 0.82 x10^3/uL (0.3-2.7); MONOS% (MANUAL) 4 % (2-9); SEG#(MANUAL) 16.07 x10^3/uL (1.8-6.8); SEGS% (MANUAL) 78 % (42-75)
[2018-12-10 06:05] LABS: ANISOCYTOSIS 2+
[2018-12-10 06:06] LABS: MICROCYTOSIS 2+
[2018-12-10 06:07] LABS: <PLATELET ESTIMATE> ADEQUATE; <PLT MORPHOLOGY> NORMAL PLT MORPH; HYPOCHROMIA 1+; POLYCHROMASIA 1+
--- NOTE | 2018-12-10 06:40 | NUR ---
PT SLEEPING COMFORTABLY ON GURNEY. RR EVEN AND UNLABORED. NADN. AWAITING CXR.
--- NOTE | 2018-12-10 06:45 | NUR ---
PT REPORT TO
--- NOTE | 2018-12-10 06:52 | NUR ---
REPORT RECEIVED, CARE ASSUMED. PT AWAKE, ASKING FOR A URINAL. PROVIDED TO PT. DR KHAN AT BEDSIDE TO EVAL PT. NOTED SOME REDNESS TO TOP OF LEFT FOOT, 2ND TOE ON LEFT FOOT RED, TIP LARGER THAN OTHER TOES. NO OTHER NEEDS EXPRESSED AT THIS TIME. WAITING FOR FURTHER DISPOSITION.
--- NOTE | 2018-12-10 07:10 | NUR ---
PT TO BE DC'D BACK TO [facility] [phone], SPOKE WITH [facility]CE[facility]. "DO NOT HAVE TRANSPORTATION AVAILABLE TODAY" MARCELL WILL ATTEMPT TO CALL PTS SISTER AND WILL CALL BACK.
[2018-12-10] MEDS ORDERED: CEPHALEXIN 500 MG CAPSULE ONE (07:27)
[2018-12-10] MEDS ORDERED: CEPHALEXIN 500 MG CAPSULE PO ONE (07:30)
--- NOTE | 2018-12-10 07:44 | NUR ---
PT PLACED ON WAFFLE MATTRESS, REPOSITIONED FOR COMFORT. PT ASSISTED WITH PUTTING BRIEFS BACK ON. URINAL AT BEDSIDE. PT AWARE OF MEAL TRAY REQUESTED FROM DIETARY. WAITING FOR TRANSPORTATION BACK TO [facility]. NO OTHER NEEDS EXPRESSED AT THIS TIME.
--- NOTE | 2018-12-10 08:50 | NUR ---
CALLED AND LEFT MESSAGE FOR [facility] FOR NEED OF TRANSPORT
--- NOTE | 2018-12-10 09:04 | NUR ---
PLACED CALL TO SKIP, PTS SISTER [phone], "NO ONE IN THE FAMILY HAS TRANSPORTATION THAT WILL ACCOMODATE HIM" DISCUSSED PT DX AND PLAN TO DISCHARGE PT BACK TO [facility]. PT ATE SMALL AMT OF BREAKFAST. NO OTHER NEEDS EXPRESSED AT THIS TIME. PT AWARE OF WAITING FOR TRANSPORTATION.
--- NOTE | 2018-12-10 09:56 | NUR ---
REPORT TO LAURA KILPATRICK, PT MOSTLY SLEEPING, AROUSES TO NAME. NO NEEDS EXPRESSED AT THIS TIME.
--- NOTE | 2018-12-10 09:56 | NUR ---
BEDSIDE REPORT RECEIVED FROM FINESSE STANLEY. ASSUMED CARE OF PT. PT CURRENTLY RESTING ON GURNEY. PT DOZING, AWAKENS EASILY TO NAME BEING CALLED. PT AO X 4. SKIN WARM AND DRY. RESP EVEN AND EQUAL. PT ON CONT BP AND O2 MONITORS. CALL LIGHT WITHIN REACH. WILL CONT TO MONITOR PT.
[2018-12-10 11:33] VITALS: BP 124/52
== END 2018-12-10 11:36 | disposition home or self-care (01) ==
LOC: ED 05:10
DX: L03.032 Cellulitis of left toe (principal); L03.116 Cellulitis of left lower limb; D72.829 Elevated white blood cell count, unspecified; Z86.73 Personal history of transient ischemic attack (TIA), and cerebral infarction without residual deficits
CPT/HCPCS: 36415; 71045; 80048; 81003; 82040; 85025; 99284

== ENCOUNTER 2019-01-12 22:44 | Emergency (ER) | payer MEDICARE, BC ==
[~2019-01-12] VITALS: Ht 185.4 cm; Wt 65.0 kg
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
[2019-01-12] MEDS ORDERED: IBUPROFEN 600 MG TABLET ONE (23:27)
[2019-01-12] MEDS ORDERED: IBUPROFEN 600 MG TABLET PO ONE (23:30)
--- NOTE | 2019-01-13 00:58 | NUR ---
BREAK RN: PT RESTING CALMLY, NAD, MONITORS IN PLACE, CALL LIGHT WITHIN REACH. AWAITING TRANSFER BACK TO FACILITY
[2019-01-13 02:11] VITALS: BP 120/76
--- NOTE | 2019-01-13 02:11 | NUR ---
REPORT CALLED TO [facility]. [facility] AT BEDSIDE.
[2019-01-14] MEDS ORDERED: LACT-23 PO (04:55)
== END 2019-01-13 02:13 | disposition home or self-care (01) ==
LOC: ED 23:48
DX: S39.012A Strain of muscle, fascia and tendon of lower back, initial encounter (principal); Z86.73 Personal history of transient ischemic attack (TIA), and cerebral infarction without residual deficits; Z87.891 Personal history of nicotine dependence; Z88.0 Allergy status to penicillin; Z88.8 Allergy status to other drugs, medicaments and biological substances; W01.0XXA Fall on same level from slipping, tripping and stumbling without subsequent striking against object, initial encounter; Y93.89 Activity, other specified; Y92.009 Unspecified place in unspecified non-institutional (private) residence as the place of occurrence of the external cause; Y99.8 Other external cause status
CPT/HCPCS: 72110; 99283

== ENCOUNTER 2019-01-14 04:24 | Emergency (ER) | payer MEDICARE, BC ==
[~2019-01-14] VITALS: Ht 185.4 cm; Wt 66.0 kg
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
[2019-01-14] MEDS ORDERED: LACT-23 PO (04:55)
--- NOTE | 2019-01-14 04:55 | NUR ---
PT TO CT NOW.
--- NOTE | 2019-01-14 05:05 | NUR ---
PT BACK TO ROOM NOW.
[2019-01-14 06:21] VITALS: BP 124/60
--- NOTE | 2019-01-14 06:31 | NUR ---
PT GIVEN DC INSTRUCTIONS AND SCRIPTS. PT EDUCATED REGARDING DC MEDICATIONS. PT'S AOX4. RESPS EVEN AND UNLABORED.
--- NOTE | 2019-01-14 06:40 | NUR ---
Transport to Assisted Living up for patient via [facility]
--- NOTE | 2019-01-14 06:47 | NUR ---
REPORT GIVEN TO YESICA KILPATRICK.
--- NOTE | 2019-01-14 07:03 | NUR ---
Report to [facility]. Patient transferred via ambulance to assisted living facility in [place] where he lives.
== END 2019-01-14 07:06 | disposition home or self-care (01) ==
LOC: ED 04:54
DX: M48.56XA Collapsed vertebra, not elsewhere classified, lumbar region, initial encounter for fracture (principal); Z86.73 Personal history of transient ischemic attack (TIA), and cerebral infarction without residual deficits; Z90.49 Acquired absence of other specified parts of digestive tract
CPT/HCPCS: 72131; 99284

== ENCOUNTER 2019-03-11 00:23 | Emergency (ER) | payer MEDICARE, BC ==
[~2019-03-11] VITALS: Ht 185.4 cm; Wt 59.0 kg
[2019-03-11 03:12] VITALS: BP 97/43
== END 2019-03-11 03:32 | disposition home or self-care (01) ==
LOC: ED 00:52
DX: L24.9 Irritant contact dermatitis, unspecified cause (principal); Z86.73 Personal history of transient ischemic attack (TIA), and cerebral infarction without residual deficits; Z90.89 Acquired absence of other organs
CPT/HCPCS: 36415; 80053; 83690; 85025; 99283; Q0163

== ENCOUNTER 2019-03-15 11:39 | Inpatient (IN) | payer MEDICARE, BC ==
[~2019-03-15] VITALS: Ht 185.4 cm; Wt 61.0 kg
[2019-03-26 13:30] VITALS: BP 108/63
== END 2019-03-26 17:56 | DRG 840 ==
LOC: ED 12:11 → EDIP 17:54 → 3NE 18:31 → 5SO 03-16 01:55 → 3NE 03-16 22:15 → 3NW 03-17 12:30
PROVIDERS: ADMIT Family Medicine; ATTEND Family Medicine
DX: D45 Polycythemia vera (principal); K55.069 Acute infarction of intestine, part and extent unspecified; E43 Unspecified severe protein-calorie malnutrition; R53.2 Functional quadriplegia; Z68.1 Body mass index [BMI] 19.9 or less, adult; F33.9 Major depressive disorder, recurrent, unspecified; I69.354 Hemiplegia and hemiparesis following cerebral infarction affecting left non-dominant side; M48.56XA Collapsed vertebra, not elsewhere classified, lumbar region, initial encounter for fracture; L89.322 Pressure ulcer of left buttock, stage 2; Z88.0 Allergy status to penicillin; Z88.8 Allergy status to other drugs, medicaments and biological substances; D50.9 Iron deficiency anemia, unspecified; D72.829 Elevated white blood cell count, unspecified; E16.2 Hypoglycemia, unspecified; E78.5 Hyperlipidemia, unspecified; G40.909 Epilepsy, unspecified, not intractable, without status epilepticus; G89.29 Other chronic pain; I10 Essential (primary) hypertension; M21.379 Foot drop, unspecified foot; N50.89 Other specified disorders of the male genital organs; R62.7 Adult failure to thrive; Z82.49 Family history of ischemic heart disease and other diseases of the circulatory system; Z83.3 Family history of diabetes mellitus; Z87.891 Personal history of nicotine dependence; Z95.828 Presence of other vascular implants and grafts; R10.9 Unspecified abdominal pain
CPT/HCPCS: 36415; 71045; 74177; 80048; 80053; 80185; 81001; 82668; 83605; 83735; 84100; 84484; 85025; 85520; 87040; 87077; 87086; 87186; 93005; 99195; 99285; G0378; J1644; J1650; Q9967; J7030; J7040; Q0163

== ENCOUNTER 2019-04-01 20:21 | Emergency (ER) | payer MEDICARE, BC ==
[~2019-04-01] VITALS: Ht 185.4 cm; Wt 59.0 kg
[2019-04-01 23:15] VITALS: BP_DIAS 55
[2019-04-02 01:58] VITALS: BP_SYST 127
== END 2019-04-02 00:18 | disposition home or self-care (01) ==
LOC: ED 21:02
DX: K40.90 Unilateral inguinal hernia, without obstruction or gangrene, not specified as recurrent (principal); K59.00 Constipation, unspecified; R30.0 Dysuria; M62.81 Muscle weakness (generalized); I10 Essential (primary) hypertension; Z86.73 Personal history of transient ischemic attack (TIA), and cerebral infarction without residual deficits; Z90.89 Acquired absence of other organs
CPT/HCPCS: 36415; 80053; 81001; 84484; 85025; 87086; 93005; 99284